=== PATIENT | female | born 1950 | race Caucasian/White ===

== ENCOUNTER 2017-09-08 12:50 | Inpatient (IN) ==
[2017-09-08] MEDS ORDERED: SODIUM CHLORIDE 0.9% 2,200 ML IV ONE (13:10)
[2017-09-08] MEDS ORDERED: ALBUTEROL 2.5 MG/3 ML NEB RESP TX STA (13:22)
[2017-09-08 13:37] LABS: ABG Base Excess -8.6 MMOL/L (-2.5-2.5); ABG HCO3 17.4 MMOL/L (20-26); ABG Oxygen Saturation 89.5 % (95-100); ABG PCO2 53.5 MM HG (35-48); ABG PO2 66.8 MM HG (80-95); ABG TCO2 18.7 MMOL/L (23-27)
[2017-09-08 13:40] LABS: ABG PH 7.187 (7.35-7.45)
[2017-09-08] MEDS ORDERED: ETOMIDATE 20 MG/10 ML VIAL IV STA (13:55)
[2017-09-08 13:56] LABS: INR 1.1; PT Patient Result 11.2 SECS; Partial Thromboplastin Time 27.5 SECS (0-40)
[2017-09-08] MEDS ORDERED: ROCURONIUM 100 MG/10 ML VIAL IV STA (13:56)
[2017-09-08] MEDS ORDERED: ETOMIDATE 20 MG/10 ML VIAL IV ONE (14:03)
[2017-09-08] MEDS ORDERED: ROCURONIUM 100 MG/10 ML VIAL IV ONE (14:03)
[2017-09-08 14:04] LABS: Albumin 2.9 G/DL (3.4-5.0); Bilirubin,Total 0.8 MG/DL (0.2-1.0); Calcium 7.9 MG/DL (8.5-10.1); Osmolality,Calculated 291.8 MOS/KG (273-304); Potassium 5.3 MMOL/L (3.5-5.1)
[2017-09-08 14:05] LABS: Basophils % 0.2 % (0.0-0.8); Eosinophils % 0.1 % (0.00-10.9); Hematocrit 40.1 VOL% (35.7-47.0); Hemoglobin 12.3 GM/DL (12.0-16.0); Immature Granulocytes % 0.8 %; Immature Granulocytes Absolute 0.14 #; Lymphocytes # 0.5 10*3/uL (1.4-4.0); Lymphocytes % 2.9 % (21.3-54.2); Mean Corpuscular HGB Conc 30.7 GM/DL (32-36); Mean Corpuscular Hemoglobin 29 PG (27-34); Mean Corpuscular Volume 95.2 FL (87-102); Mean Platelet Volume 9.6 FL (9.6-12.0); Monocytes # 1.1 10*3/uL (0.11-0.8); Monocytes % 6.2 % (1.7-12.7); NRBC # 0.03 10*3/uL; Neutrophils # 16.2 10*3/uL (1.4-7.4); Neutrophils % 89.8 % (38.7-73.9); Platelet Count 254 T/CUMM (130-400); Red Blood Count 4.21 MC/CUMM (3.8-5.5); Red Cell Distribution Width 19.8 % (9.3-17.3)
[2017-09-08 14:11] LABS: Anisocytosis Slight; Band Neutrophils 12 % (0-10); Lymphocytes 3 % (20-55); Segmented Neutrophils 81 % (50-85); Total Cells Counted 100
[2017-09-08 14:13] LABS: Acanthocytes Few; Polychromasia Slight
[2017-09-08 14:14] LABS: Platelet Estimate Normal
[2017-09-08] MEDS ORDERED: PIPERACILLIN/TAZOBACTAM 3,375 MG in SODIUM CHLORIDE 0.9% 100 ML IV STA (14:31)
[2017-09-08 14:40] LABS: Apearance,Urine CLEAR (Clear); Bacteria,Urine Occasional /HPF (Few); Barbiturates Screen,Urine Negative (Negative); Benzodiazepines Screen,Urine Positive (Negative); Blood, Urine Negative (Negative); Cannabinoid Screen,Urine Negative (Negative); Glucose,Urine (UA) Negative (Negative); Hyaline Casts,Urine 10 /LPF (0-3); Ketones,Urine Negative (Negative); Mucus,Urine Occasional /LPF (Occasional); Nitrite,Urine Negative (Negative); Opiate Screen,Urine Positive (Negative); Phencyclidine Screen,Urine Negative (Negative); Protein,Urine Negative; RBC,Urine 1 /HPF (0-4); Squamous Epithelial Cell,Urine Occasional /HPF (0-10); Urine Specific Gravity 1.027 (1.001-1.035); WBC,Urine 1 /HPF (0-6)
[2017-09-08 14:41] LABS: Bilirubin,Urine Small mg/dL (Negative); Urine Color Dark yellow (Yellow)
[2017-09-08] MEDS ORDERED: PIPERACILLIN/TAZOBACTAM 3,375 MG VIAL IV ONE (14:53)
[2017-09-08] MEDS ORDERED: SODIUM CHLORIDE 0.9% 100 ML IV ONE (14:54)
[2017-09-08] MEDS ORDERED: MIDAZOLAM 2 MG/2 ML VIAL ONE ×3 (15:14→16:09)
[2017-09-08] MEDS ORDERED: MIDAZOLAM 2 MG/2 ML VIAL IV STA ×3 (15:17→16:09)
[2017-09-08 15:43] LABS: ABG Base Excess -8.3 MMOL/L (-2.5-2.5); ABG HCO3 17.8 MMOL/L (20-26); ABG PH 7.288 (7.35-7.45)
[2017-09-08] MEDS ORDERED: ONDANSETRON 4 MG/2 ML VIAL IV PRN (16:57)
[2017-09-08] MEDS ORDERED: MORPHINE 2 MG/1 ML SYRINGE IV PRN (16:57)
[2017-09-08] MEDS ORDERED: ACETAMINOPHEN 325 MG TABLET PO PRN (16:57)
[2017-09-08] MEDS ORDERED: NICOTINE 21 MG/24 HR PATCH TRANSDERM PRN (16:57)
[2017-09-08] MEDS ORDERED: ALBUTEROL/IPRATROPIUM 3 ML NEB RESP TX PRN (16:57)
[2017-09-08] MEDS: SODIUM CHLORIDE 0.9% 1,000 ML IV SCH (17:03)
[2017-09-08] MEDS: PHENYLEPHRINE DRIP 40 MG/250 ML PREMIX IV SCH (17:48)
[2017-09-08] MEDS: PANTOPRAZOLE 40 MG VIAL IV SCH (17:57)
[2017-09-08] MEDS ORDERED: ALBUTEROL 2.5 MG/3 ML NEB RESP TX PRN (19:00)
[2017-09-08] MEDS: NOREPINEPHRINE 8 MG in SODIUM CHLORIDE 0.9% 242 ML IV SCH (19:56)
[2017-09-08] MEDS: PROPOFOL 1,000 MG/100 ML BOTTLE IV SCH (20:48)
[2017-09-08] MEDS: ENOXAPARIN 30 MG/0.3 ML SYRINGE SUBCUT SCH (21:35)
[2017-09-09] MEDS: SODIUM CHLORIDE 0.9% 1,000 ML IV SCH ×4 (01:04→19:13)
[2017-09-09 03:42] LABS: ABG Base Excess -8.1 MMOL/L (-2.5-2.5); ABG HCO3 17.5 MMOL/L (20-26); ABG Oxygen Saturation 99.3 % (95-100); ABG PCO2 35.9 MM HG (35-48); ABG PH 7.305 (7.35-7.45); ABG PO2 242.3 MM HG (80-95); ABG TCO2 18.6 MMOL/L (23-27)
[2017-09-09] MEDS: PIPERACILLIN/TAZOBACTAM 3,375 MG in SODIUM CHLORIDE 0.9% 100 ML IV SCH ×2 (04:50→14:53)
[2017-09-09] MEDS: PROPOFOL 1,000 MG/100 ML BOTTLE IV SCH ×5 (05:10→19:47)
[2017-09-09 05:27] LABS: Basophils % 0.2 % (0.0-0.8); Eosinophils % 0.2 % (0.00-10.9); Hematocrit 35.8 VOL% (35.7-47.0); Hemoglobin 10.9 GM/DL (12.0-16.0); Immature Granulocytes Absolute 0.35 #; Lymphocytes # 0.6 10*3/uL (1.4-4.0); Lymphocytes % 3.3 % (21.3-54.2); Mean Corpuscular HGB Conc 30.4 GM/DL (32-36); Mean Corpuscular Hemoglobin 29 PG (27-34); Mean Platelet Volume 10.3 FL (9.6-12.0); Monocytes # 1.4 10*3/uL (0.11-0.8); Monocytes % 8.1 % (1.7-12.7); NRBC # 0.06 10*3/uL; Neutrophils # 15.2 10*3/uL (1.4-7.4); Neutrophils % 86.2 % (38.7-73.9); Platelet Count 278 T/CUMM (130-400); Red Blood Count 3.73 MC/CUMM (3.8-5.5); Red Cell Distribution Width 20.4 % (9.3-17.3); White Blood Count 17.6 T/CUMM (4-12)
[2017-09-09 05:55] LABS: Potassium 4.5 MMOL/L (3.5-5.1)
[2017-09-09 06:09] LABS: Risk Ratio 4.79; VLDL CHOLESTEROL 55.4 MG/DL
[2017-09-09 06:32] LABS: Band Neutrophils 7 % (0-10); Hypochromasia 1+; Lymphocytes 1 % (20-55); Macrocytosis 1+; Segmented Neutrophils 86 % (50-85); Total Cells Counted 100
[2017-09-09] MEDS: NOREPINEPHRINE 8 MG in SODIUM CHLORIDE 0.9% 242 ML IV SCH ×3 (06:38→19:47)
[2017-09-09] MEDS ORDERED: DEXTROSE 50% 25 GM/50 ML VIAL IV PRN (08:35)
[2017-09-09] MEDS ORDERED: GLUCAGON 1 MG VIAL IM PRN (08:35)
[2017-09-09] MEDS: methylPREDNISolone SOD SUC 40 MG/1 ML VIAL IV SCH ×2 (10:52→18:49)
[2017-09-09] MEDS: INSULIN LISPRO 100 UNIT/ML SUBCUT SCH ×2 (12:44→18:42)
[2017-09-09] MEDS: PANTOPRAZOLE 40 MG VIAL IV SCH (18:43)
[2017-09-09] MEDS: PHENYLEPHRINE DRIP 40 MG/250 ML PREMIX IV SCH (19:13)
[2017-09-09] MEDS: ENOXAPARIN 30 MG/0.3 ML SYRINGE SUBCUT SCH (20:58)
[2017-09-10] MEDS: methylPREDNISolone SOD SUC 40 MG/1 ML VIAL IV SCH ×3 (00:18→17:38)
[2017-09-10] MEDS: INSULIN LISPRO 100 UNIT/ML SUBCUT SCH ×4 (00:19→17:31)
[2017-09-10] MEDS: PROPOFOL 1,000 MG/100 ML BOTTLE IV SCH ×6 (00:28→23:09)
[2017-09-10] MEDS: NOREPINEPHRINE 8 MG in SODIUM CHLORIDE 0.9% 242 ML IV SCH ×2 (01:48→20:42)
[2017-09-10] MEDS: SODIUM CHLORIDE 0.9% 1,000 ML IV SCH ×4 (01:50→13:14)
[2017-09-10] MEDS: PIPERACILLIN/TAZOBACTAM 3,375 MG in SODIUM CHLORIDE 0.9% 100 ML IV SCH ×3 (03:10→18:18)
[2017-09-10 05:01] LABS: ABG Base Excess -4.6 MMOL/L (-2.5-2.5); ABG HCO3 20.7 MMOL/L (20-26); ABG Oxygen Saturation 98.6 % (95-100); ABG PCO2 39.3 MM HG (35-48); ABG PH 7.335 (7.35-7.45); ABG TCO2 18.2 MMOL/L (23-27); Allen Test Positive; Pt O2 Delivery Device Ventilator
[2017-09-10 05:02] LABS: Basophils % 0.1 % (0.0-0.8); Hemoglobin 10.8 GM/DL (12.0-16.0); Immature Granulocytes % 3.1 %; Immature Granulocytes Absolute 0.59 #; Lymphocytes # 0.4 10*3/uL (1.4-4.0); Mean Corpuscular HGB Conc 30.9 GM/DL (32-36); Mean Corpuscular Hemoglobin 29 PG (27-34); Mean Corpuscular Volume 93.8 FL (87-102); Mean Platelet Volume 10.4 FL (9.6-12.0); Monocytes # 0.7 10*3/uL (0.11-0.8); Monocytes % 3.6 % (1.7-12.7); NRBC # 0.03 10*3/uL; Neutrophils # 17.2 10*3/uL (1.4-7.4); Neutrophils % 91.2 % (38.7-73.9); Platelet Count 254 T/CUMM (130-400); Red Blood Count 3.73 MC/CUMM (3.8-5.5); Red Cell Distribution Width 21.2 % (9.3-17.3); White Blood Count 18.8 T/CUMM (4-12)
[2017-09-10 05:29] LABS: Calcium 7.6 MG/DL (8.5-10.1); Osmolality,Calculated 300.3 MOS/KG (273-304); Potassium 4.6 MMOL/L (3.5-5.1)
[2017-09-10 05:38] LABS: Band Neutrophils 11 % (0-10); Lymphocytes 1 % (20-55); Macrocytosis 1+; Platelet Estimate Normal; Segmented Neutrophils 87 % (50-85); Total Cells Counted 100
[2017-09-10] MEDS: PANTOPRAZOLE 40 MG VIAL IV SCH (17:38)
[2017-09-10] MEDS: PHENYLEPHRINE DRIP 40 MG/250 ML PREMIX IV SCH (18:15)
[2017-09-10] MEDS: ENOXAPARIN 30 MG/0.3 ML SYRINGE SUBCUT SCH (20:00)
[2017-09-11] MEDS: INSULIN LISPRO 100 UNIT/ML SUBCUT SCH ×4 (00:30→18:50)
[2017-09-11] MEDS: methylPREDNISolone SOD SUC 40 MG/1 ML VIAL IV SCH ×3 (00:30→17:29)
[2017-09-11] MEDS: PIPERACILLIN/TAZOBACTAM 3,375 MG in SODIUM CHLORIDE 0.9% 100 ML IV SCH ×3 (02:24→18:51)
[2017-09-11] MEDS: SODIUM CHLORIDE 0.9% 1,000 ML IV SCH ×2 (02:25→15:46)
[2017-09-11] MEDS: PROPOFOL 1,000 MG/100 ML BOTTLE IV SCH ×4 (03:13→22:15)
[2017-09-11 04:31] LABS: ABG Base Excess -2.1 MMOL/L (-2.5-2.5); ABG HCO3 22.6 MMOL/L (20-26); ABG Oxygen Saturation 98.2 % (95-100); ABG PCO2 33.6 MM HG (35-48); ABG PH 7.419 (7.35-7.45); ABG TCO2 19.6 MMOL/L (23-27)
[2017-09-11] MEDS: PANTOPRAZOLE 40 MG VIAL IV SCH (17:29)
[2017-09-11] MEDS: NOREPINEPHRINE 8 MG in SODIUM CHLORIDE 0.9% 242 ML IV SCH (20:37)
[2017-09-11] MEDS: ENOXAPARIN 30 MG/0.3 ML SYRINGE SUBCUT SCH (20:55)
[2017-09-12] MEDS: INSULIN LISPRO 100 UNIT/ML SUBCUT SCH ×4 (01:41→18:09)
[2017-09-12] MEDS: methylPREDNISolone SOD SUC 40 MG/1 ML VIAL IV SCH ×3 (01:41→18:09)
[2017-09-12] MEDS: PROPOFOL 1,000 MG/100 ML BOTTLE IV SCH ×5 (03:20→19:25)
[2017-09-12] MEDS: PIPERACILLIN/TAZOBACTAM 3,375 MG in SODIUM CHLORIDE 0.9% 100 ML IV SCH ×3 (04:00→18:09)
[2017-09-12 04:42] LABS: ABG Base Excess -3.7 MMOL/L (-2.5-2.5); ABG Oxygen Saturation 90.4 % (95-100); ABG PCO2 48.6 MM HG (35-48); ABG PH 7.293 (7.35-7.45); ABG TCO2 24.5 MMOL/L (23-27); Allen Test Positive; Pt O2 Delivery Device Ventilator
[2017-09-12] MEDS: SODIUM CHLORIDE 0.9% 1,000 ML IV SCH (05:05)
[2017-09-12 05:22] LABS: Basophils % 0.1 % (0.0-0.8); Hematocrit 33.6 VOL% (35.7-47.0); Hemoglobin 10.3 GM/DL (12.0-16.0); Immature Granulocytes % 1.4 %; Immature Granulocytes Absolute 0.21 #; Lymphocytes # 0.4 10*3/uL (1.4-4.0); Lymphocytes % 2.9 % (21.3-54.2); Mean Corpuscular HGB Conc 30.7 GM/DL (32-36); Mean Corpuscular Hemoglobin 29 PG (27-34); Mean Corpuscular Volume 94.6 FL (87-102); Mean Platelet Volume 10.5 FL (9.6-12.0); Monocytes # 0.8 10*3/uL (0.11-0.8); Monocytes % 5.3 % (1.7-12.7); NRBC # 0.14 10*3/uL; Neutrophils # 13.4 10*3/uL (1.4-7.4); Neutrophils % 90.3 % (38.7-73.9); Platelet Count 185 T/CUMM (130-400); Red Blood Count 3.55 MC/CUMM (3.8-5.5); Red Cell Distribution Width 22.1 % (9.3-17.3); White Blood Count 14.9 T/CUMM (4-12)
[2017-09-12 05:49] LABS: Calcium 7.9 MG/DL (8.5-10.1); Osmolality,Calculated 305.9 MOS/KG (273-304); Potassium 4.8 MMOL/L (3.5-5.1)
[2017-09-12 06:06] LABS: Hypochromasia 1+; Lymphocytes 2 % (20-55); Macrocytosis Slight; Nucleated Red Blood Cells 2 (0-5); Platelet Estimate Normal; Segmented Neutrophils 92 % (50-85); Total Cells Counted 100
[2017-09-12] MEDS: DEXTROSE 5% 1,000 ML IV SCH (15:50)
[2017-09-12] MEDS: PANTOPRAZOLE 40 MG VIAL IV SCH (18:08)
[2017-09-12] MEDS: NOREPINEPHRINE 8 MG in SODIUM CHLORIDE 0.9% 242 ML IV SCH (19:34)
[2017-09-12] MEDS: ENOXAPARIN 30 MG/0.3 ML SYRINGE SUBCUT SCH (20:58)
[2017-09-13] MEDS: INSULIN LISPRO 100 UNIT/ML SUBCUT SCH ×4 (00:13→19:00)
[2017-09-13] MEDS: PROPOFOL 1,000 MG/100 ML BOTTLE IV SCH ×3 (01:00→20:59)
[2017-09-13] MEDS: methylPREDNISolone SOD SUC 40 MG/1 ML VIAL IV SCH ×3 (01:50→18:33)
[2017-09-13] MEDS: PIPERACILLIN/TAZOBACTAM 3,375 MG in SODIUM CHLORIDE 0.9% 100 ML IV SCH ×3 (04:15→18:59)
[2017-09-13 04:41] LABS: ABG Base Excess -1.4 MMOL/L (-2.5-2.5); ABG Oxygen Saturation 98.8 % (95-100); ABG PCO2 37.8 MM HG (35-48); ABG PH 7.403 (7.35-7.45); ABG PO2 160.3 MM HG (80-95); ABG TCO2 24.2 MMOL/L (23-27); Allen Test Positive; Pt O2 Delivery Device Ventilator
[2017-09-13 06:37] LABS: Calcium 8.2 MG/DL (8.5-10.1); Osmolality,Calculated 298.4 MOS/KG (273-304); Potassium 4.7 MMOL/L (3.5-5.1)
[2017-09-13] MEDS ORDERED: FUROSEMIDE 40 MG/4 ML VIAL IV ONE (07:58)
[2017-09-13] MEDS: ENOXAPARIN 40 MG/0.4 ML SYRINGE SUBCUT SCH (08:39)
[2017-09-13] MEDS: DEXTROSE 5% 1,000 ML IV SCH (08:41)
[2017-09-13] MEDS: PANTOPRAZOLE 40 MG VIAL IV SCH (18:29)
[2017-09-14] MEDS: INSULIN LISPRO 100 UNIT/ML SUBCUT SCH ×5 (00:34→23:51)
[2017-09-14] MEDS: DEXTROSE 5% 1,000 ML IV SCH (02:08)
[2017-09-14] MEDS: methylPREDNISolone SOD SUC 40 MG/1 ML VIAL IV SCH ×3 (02:08→18:47)
[2017-09-14] MEDS: PIPERACILLIN/TAZOBACTAM 3,375 MG in SODIUM CHLORIDE 0.9% 100 ML IV SCH ×3 (03:12→18:45)
[2017-09-14 04:06] LABS: Basophils % 0.1 % (0.0-0.8); Hematocrit 35.7 VOL% (35.7-47.0); Hemoglobin 11.1 GM/DL (12.0-16.0); Immature Granulocytes % 4.2 %; Immature Granulocytes Absolute 0.38 #; Lymphocytes # 0.6 10*3/uL (1.4-4.0); Lymphocytes % 6.3 % (21.3-54.2); Mean Corpuscular HGB Conc 31.1 GM/DL (32-36); Mean Corpuscular Hemoglobin 28 PG (27-34); Mean Corpuscular Volume 91.3 FL (87-102); Mean Platelet Volume 9.9 FL (9.6-12.0); Monocytes # 0.6 10*3/uL (0.11-0.8); Monocytes % 6.4 % (1.7-12.7); NRBC # 0.08 10*3/uL; Neutrophils # 7.4 10*3/uL (1.4-7.4); Platelet Count 140 T/CUMM (130-400); Red Blood Count 3.91 MC/CUMM (3.8-5.5); Red Cell Distribution Width 20.2 % (9.3-17.3)
[2017-09-14 04:26] LABS: Albumin 2.2 G/DL (3.4-5.0); Bilirubin,Total 0.5 MG/DL (0.2-1.0); Calcium 7.9 MG/DL (8.5-10.1); Osmolality,Calculated 285.3 MOS/KG (273-304); Potassium 3.8 MMOL/L (3.5-5.1); Total Protein 5.5 G/DL (6.4-8.3)
[2017-09-14] MEDS: ENOXAPARIN 40 MG/0.4 ML SYRINGE SUBCUT SCH (09:16)
[2017-09-14] MEDS ORDERED: oxyCODONE/ACETAMINOPHEN 5-325 MG TABLET PO PRN (14:41)
[2017-09-14] MEDS ORDERED: FUROSEMIDE 20 MG TABLET PO PRN (14:41)
[2017-09-14] MEDS: GABAPENTIN 300 MG CAPSULE PO SCH ×2 (16:17→20:42)
[2017-09-14] MEDS: ARIPiprazole 10 MG TABLET PO SCH (16:18)
[2017-09-14] MEDS: ZINC OXIDE PASTE 113 GM TUBE TOP SCH ×2 (16:19→20:42)
[2017-09-14] MEDS: PANTOPRAZOLE 40 MG VIAL IV SCH (18:50)
[2017-09-14] MEDS ORDERED: DULoxetine 30 MG CAPSULE PO SCH (21:00)
[2017-09-14] MEDS ORDERED: QUEtiapine XR 50 MG TABLET PO SCH (21:00)
[2017-09-14] MEDS ORDERED: TRIAZOLAM 0.25 MG PO SCH (21:00)
[2017-09-14] MEDS ORDERED: ATORVASTATIN 40 MG TABLET PO SCH (21:00)
[2017-09-15] MEDS ORDERED: DILTIAZEM 50 MG/10 ML VIAL IV ONE (01:10)
[2017-09-15] MEDS ORDERED: DILTIAZEM INJ 100 MG in SODIUM CHLORIDE 0.9% 100 ML IV SCH (01:30)
[2017-09-15] MEDS: methylPREDNISolone SOD SUC 40 MG/1 ML VIAL IV SCH (02:02)
[2017-09-15] MEDS: PIPERACILLIN/TAZOBACTAM 3,375 MG in SODIUM CHLORIDE 0.9% 100 ML IV SCH ×2 (04:20→13:20)
[2017-09-15 05:15] LABS: Basophils % 0.2 % (0.0-0.8); Hematocrit 39.3 VOL% (35.7-47.0); Hemoglobin 12.3 GM/DL (12.0-16.0); Immature Granulocytes Absolute 0.33 #; Lymphocytes # 0.5 10*3/uL (1.4-4.0); Lymphocytes % 5.6 % (21.3-54.2); Mean Corpuscular HGB Conc 31.3 GM/DL (32-36); Mean Corpuscular Hemoglobin 28 PG (27-34); Mean Corpuscular Volume 90.3 FL (87-102); Mean Platelet Volume 11.9 FL (9.6-12.0); Monocytes # 0.5 10*3/uL (0.11-0.8); Monocytes % 5.4 % (1.7-12.7); NRBC # 0.03 10*3/uL; Neutrophils # 7.1 10*3/uL (1.4-7.4); Neutrophils % 84.8 % (38.7-73.9); Platelet Count 166 T/CUMM (130-400); Red Blood Count 4.35 MC/CUMM (3.8-5.5); Red Cell Distribution Width 19.5 % (9.3-17.3); White Blood Count 8.3 T/CUMM (4-12)
[2017-09-15 05:33] LABS: Calcium 7.7 MG/DL (8.5-10.1); Osmolality,Calculated 281.5 MOS/KG (273-304); Potassium 3.9 MMOL/L (3.5-5.1)
[2017-09-15] MEDS: INSULIN LISPRO 100 UNIT/ML SUBCUT SCH ×2 (07:37→13:19)
[2017-09-15] MEDS ORDERED: MAGNESIUM SULF RIDER 2 GM in PREMIX 1 EACH IV ONE (08:42)
[2017-09-15] MEDS ORDERED: MULTIVITAMIN (CENTRUM) TABLET PO SCH (09:00)
[2017-09-15] MEDS ORDERED: POTASSIUM CHLORIDE 20 MEQ TABLET PO SCH (09:00)
[2017-09-15] MEDS ORDERED: ASPIRIN EC 81 MG TABLET PO SCH (09:00)
[2017-09-15] MEDS ORDERED: ENOXAPARIN 40 MG/0.4 ML SYRINGE SUBCUT SCH (09:00)
[2017-09-15] MEDS ORDERED: CLOPIDOGREL 75 MG TABLET PO SCH (09:00)
[2017-09-15] MEDS ORDERED: predniSONE 20 MG TABLET PO SCH (09:00)
[2017-09-15] MEDS: ARIPiprazole 10 MG TABLET PO SCH (09:14)
[2017-09-15] MEDS: GABAPENTIN 300 MG CAPSULE PO SCH (09:15)
[2017-09-15] MEDS: ZINC OXIDE PASTE 113 GM TUBE TOP SCH (09:15)
[2017-09-15 13:44] VITALS: BP 133/82
== END 2017-09-15 14:35 | disposition home health service (06) | DRG 870 ==
LOC: EDBD → EDUNIT# → N.ED 12:50 → SUATTDRO 14:34 → N.EDINP 14:34 → SUPCPDRO 14:34 → N.EDINP 16:12 → N.CC 16:43
PROVIDERS: ADMIT Internal Medicine; ATTEND Family Medicine

== ENCOUNTER 2017-10-28 14:20 | Inpatient (IN) ==
[2017-10-28] MEDS ORDERED: FUROSEMIDE 40 MG/4 ML VIAL IV STA (15:57)
[2017-10-28] MEDS ORDERED: methylPREDNISolone SOD SUC 125 MG/2 ML VIAL IV STA (15:57)
[2017-10-28] MEDS ORDERED: ALBUTEROL/IPRATROPIUM 3 ML NEB RESP TX STA (15:57)
[2017-10-28 16:13] LABS: Basophils % 0.4 % (0.0-0.8); Eosinophils % 0.8 % (0.00-10.9); Hematocrit 45.4 VOL% (35.7-47.0); Hemoglobin 14.6 GM/DL (12.0-16.0); Immature Granulocytes % 0.4 %; Immature Granulocytes Absolute 0.02 #; Lymphocytes # 1.7 10*3/uL (1.4-4.0); Lymphocytes % 31.6 % (21.3-54.2); Mean Corpuscular HGB Conc 32.2 GM/DL (32-36); Mean Corpuscular Hemoglobin 30 PG (27-34); Mean Corpuscular Volume 92.5 FL (87-102); Mean Platelet Volume 10.3 FL (9.6-12.0); Monocytes # 0.5 10*3/uL (0.11-0.8); Monocytes % 10.3 % (1.7-12.7); Neutrophils % 56.5 % (38.7-73.9); Platelet Count 279 T/CUMM (130-400); Red Blood Count 4.91 MC/CUMM (3.8-5.5); Red Cell Distribution Width 20.8 % (9.3-17.3); White Blood Count 5.3 T/CUMM (4-12)
[2017-10-28 16:18] LABS: PT Patient Result 10.5 SECS
[2017-10-28 16:26] LABS: Alanine Aminotransferase 11 U/L (13-56); Albumin 3.3 G/DL (3.4-5.0); Alkaline Phosphatase 122 U/L (45-117); Aspartate Amino Transferase 15 U/L (0-37); Blood Urea Nitrogen 19 MG/DL (7-18); Calcium 8.8 MG/DL (8.5-10.1); Glucose 114 MG/DL (74-106); Osmolality,Calculated 283.3 MOS/KG (273-304); Potassium 3.6 MMOL/L (3.5-5.1); Sodium 141 MMOL/L (136-145); Troponin I Only < 0.015 NG/ML (0.00-0.045)
[2017-10-28 16:28] LABS: ABG Base Excess 1.8 MMOL/L (-2.5-2.5); ABG HCO3 25.8 MMOL/L (20-26); ABG Oxygen Saturation 92.3 % (95-100); ABG PCO2 38.3 MM HG (35-48); ABG PH 7.437 (7.35-7.45); ABG PO2 66.3 MM HG (80-95); ABG TCO2 22.1 MMOL/L (23-27); Allen Test Positive
[2017-10-28 16:31] LABS: Prolactin 5.3 NG/ML
[2017-10-28 16:42] LABS: Apearance,Urine CLEAR (Clear); Bilirubin,Urine Negative (Negative); Blood, Urine Negative (Negative); Glucose,Urine (UA) Negative (Negative); Ketones,Urine Negative (Negative); Mucus,Urine Occasional /LPF (Occasional); Nitrite,Urine Negative (Negative); Protein,Urine Negative; RBC,Urine 1 /HPF (0-4); Urine Color Yellow (Yellow); Urine Specific Gravity 1.006 (1.001-1.035); Urine Urobilinogen < 2.0 EU/DL (0.2-1.0); WBC,Urine <1 /HPF (0-6)
[2017-10-28 16:44] LABS: Ammonia < 10 UMOL/L (11-32)
[2017-10-28 16:51] LABS: Barbiturates Screen,Urine Negative (Negative); Benzodiazepines Screen,Urine Negative (Negative); Cannabinoid Screen,Urine Negative (Negative); Opiate Screen,Urine Negative (Negative); Phencyclidine Screen,Urine Negative (Negative)
[2017-10-28] MEDS ORDERED: MAGNESIUM SULF RIDER 2 GM in PREMIX 1 EACH IV STA (16:51)
[2017-10-28] MEDS ORDERED: ONDANSETRON 4 MG/2 ML VIAL IV PRN (17:50)
[2017-10-28] MEDS ORDERED: DOCUSATE SODIUM 100 MG CAPSULE PO PRN (17:50)
[2017-10-28] MEDS ORDERED: FUROSEMIDE 20 MG TABLET PO PRN (18:02)
[2017-10-28] MEDS ORDERED: BUDESONIDE/FORMOTEROL 160-4.5 INHALER 6 GM INH PRN (18:02)
[2017-10-28] MEDS ORDERED: ALBUTEROL/IPRATROPIUM 3 ML NEB RESP TX PRN (18:19)
[2017-10-28] MEDS ORDERED: LEVOFLOXACIN INJ 500 MG in PREMIX 1 EACH IV SCH (20:00)
[2017-10-28] MEDS: ALBUTEROL/IPRATROPIUM 3 ML NEB RESP TX SCH (20:52)
[2017-10-28] MEDS ORDERED: CLOPIDOGREL 75 MG TABLET PO SCH (21:00)
[2017-10-28] MEDS ORDERED: GABAPENTIN 300 MG CAPSULE PO SCH (21:00)
[2017-10-28] MEDS ORDERED: ENOXAPARIN 40 MG/0.4 ML SYRINGE SUBCUT SCH (21:00)
[2017-10-28] MEDS ORDERED: POTASSIUM CHLORIDE 20 MEQ TABLET PO SCH (21:00)
[2017-10-28] MEDS ORDERED: ARIPiprazole 10 MG TABLET PO SCH (21:00)
[2017-10-28] MEDS ORDERED: ATORVASTATIN 40 MG TABLET PO SCH (21:00)
[2017-10-28] MEDS ORDERED: OMEPRAZOLE MAGNESIUM PO SCH (21:00)
[2017-10-28] MEDS: NICOTINE 21 MG/24 HR PATCH TRANSDERM SCH (21:24)
[2017-10-28] MEDS: QUEtiapine XR 50 MG TABLET PO SCH ×2 (21:27→21:35)
[2017-10-28] MEDS: methylPREDNISolone SOD SUC 40 MG/1 ML VIAL IV SCH (23:22)
[2017-10-29] MEDS: ALBUTEROL/IPRATROPIUM 3 ML NEB RESP TX SCH ×2 (00:23→07:28)
[2017-10-29] MEDS: ACETAMINOPHEN 325 MG TABLET PO PRN ×2 (03:34→07:13)
[2017-10-29 06:51] LABS: Basophils % 0.1 % (0.0-0.8); Hematocrit 42.7 VOL% (35.7-47.0); Hemoglobin 13.5 GM/DL (12.0-16.0); Immature Granulocytes % 0.3 %; Immature Granulocytes Absolute 0.02 #; Lymphocytes # 0.5 10*3/uL (1.4-4.0); Lymphocytes % 6.7 % (21.3-54.2); Mean Corpuscular HGB Conc 31.6 GM/DL (32-36); Mean Corpuscular Hemoglobin 29 PG (27-34); Monocytes # 0.2 10*3/uL (0.11-0.8); Monocytes % 3.4 % (1.7-12.7); Neutrophils # 6.1 10*3/uL (1.4-7.4); Neutrophils % 89.5 % (38.7-73.9); Platelet Count 279 T/CUMM (130-400); Red Blood Count 4.64 MC/CUMM (3.8-5.5); White Blood Count 6.9 T/CUMM (4-12)
[2017-10-29] MEDS: methylPREDNISolone SOD SUC 40 MG/1 ML VIAL IV SCH (07:11)
[2017-10-29 07:28] LABS: Calcium 8.5 MG/DL (8.5-10.1); Osmolality,Calculated 291.3 MOS/KG (273-304); Potassium 4.5 MMOL/L (3.5-5.1)
[2017-10-29 07:41] VITALS: BP 116/71
[2017-10-29] MEDS ORDERED: MULTIVITAMIN (CENTRUM) TABLET PO SCH (09:00)
[2017-10-29] MEDS ORDERED: ASPIRIN EC 81 MG TABLET PO SCH (09:00)
[2017-10-29] MEDS ORDERED: PANTOPRAZOLE 40 MG TABLET PO SCH (09:00)
[2017-10-29] MEDS: NICOTINE 21 MG/24 HR PATCH TRANSDERM SCH (09:51)
== END 2017-10-29 12:00 | disposition home or self-care (01) | DRG 948 ==
LOC: EDUNIT# → EDBD → N.ED 14:20 → N.EDINP 18:01 → N.CC 18:58 → N.5E 23:13
PROVIDERS: ADMIT Family Medicine; ATTEND Family Medicine